=== PATIENT | female | born 1955 | race Caucasian/White ===

== ENCOUNTER 2018-11-28 11:15 | Inpatient (IN) | payer MEDICARE ==
[~2018-11-28] VITALS: Ht 170.2 cm; Wt 95.6 kg
[~2018-11-28 11:15] MED LIST: ASPI325 PO; COQ10; OXYACE5T PO; SELENIUM200 MCG PO; Vitamin D400 UNI1 PO; XARELTO10 MG PO
--- NOTE | 2018-11-28 13:45 | NUR ---
Ambulatory in Day Surgery History, Chart, Medications and Allergies reviewed before start of procedure.Lungs clear T/O to Auscultation. Patient confirms NPO status and agrees with scheduled surgery. Patient confirms NPO status and agrees with scheduled surgery.
--- NOTE | 2018-11-28 13:56 | NUR ---
BROUGHT BACK TO BEDSIDE. PT HAS NO COMPLAINTS.
--- NOTE | 2018-11-28 14:21 | NUR ---
PT RESTING QUIETLY NO COMPLAINTS. CALL LIGHT WITHIN REACH.
--- NOTE | 2018-11-28 14:51 | NUR ---
SAW PT. OR RN RENAL (TASNEEM) AT BEDSIDE REPORT DONE.
[2018-11-29 05:26] LABS: BASOPHILS ABSOLUTE AUTO 0.02 K/mm3 (0.00-0.23); BASOPHILS PERCENT AUTO 0 % (0-2); EOSINOPHILS PERCENT AUTO 0 % (0-6); Hematocrit 36.4 % (33.0-51.0); Hemoglobin 11.9 g/dL (11.5-16.0); IMMATURE GRAN ABSOLUTE AUTO 0.04 K/mm3 (0.00-0.10); IMMATURE GRAN PERCENT AUTO 0 % (0-1); LYMPHOCYTES ABSOLUTE AUTO 1.62 K/mm3 (0.84-5.20); LYMPHOCYTES PERCENT AUTO 14 % (21-46); MONOCYTES ABSOLUTE AUTO 0.89 K/mm3 (0.16-1.47); MONOCYTES PERCENT AUTO 8 % (4-13); Mean Corpuscular HGB 31.3 pg (26.0-34.0); Mean Corpuscular HGB Conc 32.7 g/dL (31.5-36.5); Mean Corpuscular Volume 96 fL (80-100); NEUTROPHILS ABSOLUTE AUTO 9.34 K/mm3 (1.96-9.15); NEUTROPHILS PERCENT AUTO 78 % (41-73); Platelet Count 248 K/mm3 (150-400); RDW Coefficient Variation 13.2 % (11.7-14.2); White Blood Cell Count 11.91 K/mm3 (4.00-11.30)
[2018-11-29 05:49] LABS: Anion Gap 5 mmol/L (6-16); Blood Urea Nitrogen 12 mg/dL (8-24); Bun/Creatinine Ratio 20.3 (12.0-20.0); CO2, Blood 25 mmol/L (21-32); Calcium, Blood 8.3 mg/dL (8.5-10.1); Chloride, Blood 110 mmol/L (98-108); Creatinine, Blood 0.59 mg/dL (0.40-1.00); Glomerular Filtration Rate >60 (60-); Glucose, Blood 106 mg/dL (70-99); Potassium, Blood 4.1 mmol/L (3.5-5.5); Sodium, Blood 140 mmol/L (136-145)
--- NOTE | 2018-11-29 06:31 | NUR ---
SHIFT SUMMARY PT IS POD 1 RIGHT HIP EXCISION OF ECTOPIC BONE. PT IS SBA W/ FWW, MOVING EASILY. VOIDING, EATING, DRINKING WITHOUT ISSUE. PT IS A&O, ABLE TO MAKE NEEDS KNOWN. PT HAS HAD VERY LITTLE PAIN, COMFORTABLE AT REST, 1-2/10 WITH MOVEMENT. WILL CTM UNTIL PASS TO NEXT SHIFT.
[2018-11-29] MEDS ORDERED: Percocet 5-3251 EACH PO (09:14)
[2018-11-29] MEDS ORDERED: Indomethacin25 MG PO (09:15)
--- NOTE | 2018-11-29 11:16 | NUR ---
DISCHARGE INSTRUCTIONS REVIEWED WITH PATIENT AND PATIENTS QUESTIONS ANSWERED. PATIENT INSTRUCTED ON AQUACEL DRESSING CHANGE AND PATIENT PROVIDED WITH AQUACEL. PATIENT AWAITING HER HUSBANDS ARRIVAL TO DISCHARGE HER HOME
--- NOTE | 2018-11-29 12:40 | NUR ---
DISCHARGE PATIENT DISCHARGED TO HOME WITH
== END 2018-11-29 12:10 | disposition home or self-care (01) | DRG 470 ==
LOC: SURS 13:04 → PRE IP 14:30 → SURS 17:06
PROVIDERS: ADMIT Orthopaedic Surgery
PROC: 0SR90JZ Replacement of Right Hip Joint with Synthetic Substitute, Open Approach (ICD-10-PCS; principal; 2018-11-28 14:30)
DX: M16.11 Unilateral primary osteoarthritis, right hip (principal); A69.20 Lyme disease, unspecified; I10 Essential (primary) hypertension; F32.9 Major depressive disorder, single episode, unspecified; M79.7 Fibromyalgia; R53.83 Other fatigue; M89.8X9 Other specified disorders of bone, unspecified site
CPT/HCPCS: 36415; 72170; 80048; 85025; 97110; 97116; 97162; 97166; J0690; J1100; J1885; J2250; J2370; J2405; J2704; J3010; J7120

== ENCOUNTER 2024-01-08 06:51 | Day surgery (SDC) | payer MEDICARE ==
[2024-01-08] VITALS (14 sets, daily range): BP systolic 109–144; BP diastolic 50–80
[~2024-01-08] VITALS: Ht 170.2 cm; Wt 97.8 kg
[~2024-01-08 06:51] MED LIST changes: +Indomethacin25 MG PO; +Percocet 5-3251 EACH PO
[2024-01-08] MEDS ORDERED: Acetaminophen 500 MG Tab PO SCH ×2 (07:05→16:00)
[2024-01-08] MEDS ORDERED: Ropivacaine 0.5% HCl/Pf 123.125 MG,EPINEPHrine HCL 0.25 MG,Ketorolac Tromethamine 15 MG... INFIL SCH (07:05)
[2024-01-08] MEDS ORDERED: Chlorhexidine Mouth Care 15 ML UDC MT SCH (07:05)
[2024-01-08] MEDS ORDERED: CeFAZolin Sodium 2,000 MG in NS 100 ML IV SCH ×2 (07:05→17:30)
[2024-01-08] MEDS ORDERED: OxyCODONE HCL 10 MG TABCR PO SCH (07:05)
[2024-01-08] MEDS ORDERED: Lactated Ringer's 1,000 ML IV SCH ×2 (07:05→10:00)
[2024-01-08] MEDS ORDERED: Tranexamic Acid 100 ML IV SCH (07:06)
[2024-01-08] MEDS ORDERED: propofoL 50 ML IV ONE (09:07)
[2024-01-08] MEDS ORDERED: Midazolam HCl 1MG / ML 2ML Vial ONE (09:12)
[2024-01-08] MEDS ORDERED: FentaNYL Citrate 50 MCG/ML 2 ML Injection ONE (09:13)
[2024-01-08] MEDS ORDERED: ePHEDrine Sulfate 50 MG/ML 1ML Injection ONE (09:51)
[2024-01-08] MEDS ORDERED: HYDROmorphone HCl/Pf 1MG SYR IV PRN (09:55)
[2024-01-08] MEDS ORDERED: DiphenhydrAMINE HCL 25 MG Cap PO PRN (09:55)
[2024-01-08] MEDS ORDERED: OxyCODONE HCL 5 MG TAB PO PRN ×2 (10:00)
[2024-01-08] MEDS ORDERED: Metoclopramide HCl 5MG / ML 2ML Vial IV PRN (10:00)
[2024-01-08] MEDS ORDERED: Magnesium Hydroxide Conc 10 ML UDC PO PRN (10:00)
[2024-01-08] MEDS ORDERED: Ondansetron HCl 2 MG / ML 2ML Vial IV PRN (10:00)
[2024-01-08] MEDS ORDERED: Promethazine HCl 25 MG Tab PO PRN (10:05)
[2024-01-08] MEDS ORDERED: Bisacodyl 10 MG Supp PR PRN (10:05)
[2024-01-08] MEDS ORDERED: propofoL 40 ML IV ONE (10:20)
[2024-01-08] MEDS ORDERED: ASPIR 8181 M1 PO (11:30)
[2024-01-08] MEDS ORDERED: Ketorolac Tromethamine 15mg Vial IV SCH (12:00)
--- NOTE | 2024-01-08 12:18 | NUR ---
PT ARRIVED TO THE ROOM FROM PACU AT APPROXIMATELY 1135. PT ALERT AND ORIENTED UPON ARRIVAL. PT REPORTS MILD HEADACHE, TORADOL GIVEN. POLAR PACK IN PLACE. DRESSING C/D/I. PULSES PRESENT AND PALPABLE. PT HAS DECREASED SENSATION TO FEET R/T SPINAL ANESTHESIA. PT IS ABLE TO DROSIFLEX BUT UNABLE TO PLANTAR FLEX AT THIS TIME. PT'S AT THE BEDSIDE.
--- NOTE | 2024-01-08 19:22 | NUR ---
SHIFT SUMMARY PT IS POD#0 FROM L TKA WITH DR. MARIEE. PAIN HAS BEEN MINIMAL AND WAS MANAGED WITH TYLENOL AND TORADOL. PT HAS BEEN ABLE TO VOID, BUT HAD <300ML OF RETAINED URINE AFTER VOID. PT IS ABLE TO MOVE BLE BUT IS UNABLE TO DORSIFLEX WITH THE LEFT FOOT, PT HAD WEAK DORSIFLEXION POST-OP, OLIVIA MILLER NOTIFIED; CAP REFIL WNL, PT HAS SENSATION TO THE BOTTOM OF HER FOOT BUT NOT THE TOP, PULSES PRESENT AND PALPABLE. PT UNABLE TO WORK WITH THERAPY R/T NUMBNESS TO HER L FOOT. BEDSIDE REPORT GIVEN TO NOC RN, PT PARTICIPATED WITH BEDSIDE REPORT.
[2024-01-08] MEDS ORDERED: Docusate Sodium 100 MG Cap PO SCH (21:00)
[2024-01-09 02:56] VITALS: BP 130/71
--- NOTE | 2024-01-09 04:38 | NUR ---
SHIFT SUMMARY POD1 L TKA. AQUACEL REMAINS C/D/I. SENSATION HAS ALMOST COMPLETELY RETURNED IN LLE, PT ABLE TO WEAKLY COMPLETE DORSIFLEXION AND CONTINUES TO IMPROVE. CIRCULATION REMAINS INTACT. VSS. PT SLEPT ON AND OFF T/O THE NIGHT. AMBULATING TO THE BATHROOM TO VOID W/ MIN ASSISTANCE. MEDICATED FOR PAIN WITH SCHEDULED AND PRN'S W/ TOLLERABLE RESULTS. TOLLERATING PO INTAKE W/O N/V. PLAN FOR PHYSICAL THERAPY AND D/C HOME TODAY.
[2024-01-09 04:51] LABS: BASOPHILS ABSOLUTE AUTO 0.03 K/mm3 (0.00-0.23); BASOPHILS PERCENT AUTO 0 % (0-2); EOSINOPHILS ABSOLUTE AUTO 0.12 K/mm3 (0.00-0.68); EOSINOPHILS PERCENT AUTO 1 % (0-6); Hematocrit 32.3 % (33.0-51.0); Hemoglobin 10.5 g/dL (11.5-16.0); IMMATURE GRAN ABSOLUTE AUTO 0.03 K/mm3 (0.00-0.10); IMMATURE GRAN PERCENT AUTO 0 % (0-1); LYMPHOCYTES PERCENT AUTO 16 % (21-46); MONOCYTES ABSOLUTE AUTO 0.92 K/mm3 (0.16-1.47); MONOCYTES PERCENT AUTO 10 % (4-13); Mean Corpuscular HGB 31.3 pg (26.0-34.0); Mean Corpuscular HGB Conc 32.5 g/dL (31.5-36.5); Mean Corpuscular Volume 96 fL (80-100); Mean Platelet Volume 10.5 fL (9.1-12.4); NEUTROPHILS ABSOLUTE AUTO 6.56 K/mm3 (1.96-9.15); NEUTROPHILS PERCENT AUTO 72 % (41-73); Platelet Count 234 K/mm3 (150-400); RDW Coefficient Variation 14.1 % (11.7-14.2); RDW Standard Deviation 50.4 fL (35.1-46.3); Red Blood Cell Count 3.36 M/mm3 (3.80-5.20); White Blood Cell Count 9.06 K/mm3 (4.00-11.30)
[2024-01-09 05:32] LABS: Bun/Creatinine Ratio 29.4 (12.0-20.0); Calcium, Blood 8.1 mg/dL (8.5-10.1); Creatinine, Blood 0.55 mg/dL (0.40-1.00); Potassium, Blood 4.2 mmol/L (3.5-5.5)
[2024-01-09 07:33] VITALS: BP 164/81
[2024-01-09 07:34] VITALS: BP 158/88
[2024-01-09] MEDS ORDERED: Aspirin 81 MG Chew PO SCH (09:00)
--- NOTE | 2024-01-09 11:44 | NUR ---
DISCHARGE POD 1 L TKA PT AMBULATED WELL WITH THERAPY. USING WALKER WELL, FOLLOWING PRECAUTIONS. ALL INSTRUCTIONS GONE OVER WITH SPOUSE AND PATIENT. EXTRA DRESSINGS SENT. DRESSING REMAINED CDI AND PT DENIED PAIN DURING SHIFT. VOIDING WELL.
== END 2024-01-09 11:40 | disposition home or self-care (01) ==
LOC: ORSCMMR 06:51 → ORD 08:15 → SURS 11:25 → ORSCMMR 01-09 11:40
PROVIDERS: Orthopaedic Surgery
PROC: 8E0Y0CZ Robotic Assisted Procedure of Lower Extremity, Open Approach (ICD-10-PCS; principal; 2024-01-08 08:15)
PROC: 0SRD0JA Replacement of Left Knee Joint with Synthetic Substitute, Uncemented, Open Approach (ICD-10-PCS; principal; 2024-01-08 08:15)
DX: M17.12 Unilateral primary osteoarthritis, left knee (principal); Z68.33 Body mass index [BMI] 33.0-33.9, adult; Z96.643 Presence of artificial hip joint, bilateral
CPT/HCPCS: 36415; 73560-LT; 80048; 85025; 97110; 97116; 97162; A9270; C1713; C1776; J0171; J0690; J0735; J1170; J1885; J2250; J2405; J2704; J2765; J2795; J3010; J7120